=== PATIENT | male | born 1970 | race Caucasian/White ===

== ENCOUNTER 2021-10-20 10:22 | Outpatient (REF) | payer OTHER, SELFPAY ==
--- NOTE | ~2021-10-20 | XR_ITS ---
EXAMINATION: XR ABDOMEN KUB CLINICAL INDICATION: Calculus COMPARISON: 10/12/2016 plain films and 10/04/2018 CT scan TECHNIQUE: AP view of the abdomen. FINDINGS: The bowel gas pattern is normal with no evidence of ileus or obstruction. No unusual soft tissue calcifications are noted. The bones are unremarkable. XR/XR KUB IMPRESSION: I do not appreciate any definitive suspicious calcifications overlying the renal shadows or along expected course the ureters currently. Dense stool does overlie the renal shadows which could obscure tiny calculi. Desiccation in the left pelvis appears to correspond with seminal vesicle calcifications on the recent CT scan. No acute bony abnormality.
== END 2021-10-20 10:23 | disposition home or self-care (01) ==
LOC: HO.XRAY 10:22
PROVIDERS: PCP Internal Medicine; Visit Provider Urology
DX: N20.0 Calculus of kidney (principal); R39.11 Hesitancy of micturition
CPT/HCPCS: 74018

== ENCOUNTER 2021-11-17 10:57 | Outpatient (REF) | payer OTHER, SELFPAY ==
--- NOTE | ~2021-11-17 | US_ITS ---
EXAMINATION: US RETROPERITONEAL LIMITED (RENAL ONLY) CLINICAL INFORMATION: Calculus of kidney. COMPARISON: KUB dated 10/20/2021 and 10/12/2016. CT abdomen and pelvis without contrast dated 10/04/2018. Renals only ultrasound dated 05/01/2018 and 05/03/2017. TECHNIQUE: Real-time imaging of the kidneys. FINDINGS: RIGHT KIDNEY: 10.3 x 5.1 x 4.2 cm (SAG x AP x TRV). The kidney is normal in size, contour, and echogenicity. Renal cortical thickness is normal. No calculi or focal parenchymal lesions. No hydronephrosis. There is mild pelvic fullness and caliectasis. LEFT KIDNEY: 12.1 x 6.1 x 4.9 cm (SAG x AP x TRV). The kidney is normal in size, contour, and echogenicity. Renal cortical thickness is normal. No calculi or focal parenchymal lesions. No hydronephrosis. There is mild pelvic fullness and caliectasis. US/US renal BI IMPRESSION: Mild bilateral pelvic fullness and caliectasis. No echogenic stones, cyst or solid mass seen.
== END 2021-11-17 10:58 | disposition home or self-care (01) ==
LOC: HO.US 10:57
PROVIDERS: PCP Internal Medicine; Visit Provider Urology
DX: N20.0 Calculus of kidney (principal)
CPT/HCPCS: 76775

== ENCOUNTER → 2021-11-23 09:57 | Outpatient (BNVA) | payer OTHER, SELFPAY | PROVIDERS: PCP Internal Medicine; Visit Provider Urology ==

== ENCOUNTER → 2022-12-07 13:21 | Outpatient (BNVA) | payer OTHER, SELFPAY | PROVIDERS: PCP Internal Medicine; Visit Provider Urology | DX: N20.0 Calculus of kidney (principal); N32.0 Bladder-neck obstruction | CPT/HCPCS: 51798 ==

== ENCOUNTER 2024-02-13 09:58 | Outpatient (AMB) | payer OTHER, SELFPAY ==
--- NOTE | 2024-02-13 10:13 | MHC.OFFVIS ---
Intake Intake Visit Reasons: 1Y Follow Up(Pt declined US)Confirmed Intake Note: Patient is Present for Follow Up Urology Medication: Alfuzosin Antibiotic Allergies:None Blood Thinners:None Allergies No Known Allergies [No Known Allergies*] Allergy (Verified 12/07/22 13:36) HPI HPI Comments History of Present Illness Details Hiram is a pleasant male. He is a patient of Dr Carmen. He is seen for following urologic conditions - nephrolithiasis - lower urinary tract symptoms Twelve month follow-up lower urinary tract symptoms Continued symptom improvement on medication Twelve month follow-up Nephrolithiasis Prior history of nephrolithiasis Imaging - 10/26 Renal US - No stones, 10/27 renal ultrasound no stones Encourage fluids Surveillance imaging Lower urinary tract symptoms Primarily weak stream and urgency Improved significantly on alfuzosin Prior medication tamsulosin did not tolerate secondary to upset stomach PFSH Medical History History of kidney stones Renal stones Surgical History History of surgery Review of Systems Const Denies chills and Denies fever(s) Card Reports no additional complaints and Denies syncope Resp Denies cough GI Denies abdominal pain and Denies heartburn Reports as per HPI and Denies change in libido Neuro Denies syncope Psych Denies change in libido Endo Denies change in libido Physical Exam Const General: cooperative, healthy appearing, comfortable and no acute distress Orientation/consciousness: patient oriented x3 HEENT Face and sinus: Yes normal facial exam Mouth: moist mucous membranes Neck Neck: Yes normal visual inspection, Yes full ROM and Yes trachea midline Chest Chest palpation & inspection: normal inspection of the chest Resp Effort & Inspection: normal respiratory effort, able to speak in complete sentences and no respiratory distress GI Inspection: Yes normal to inspection Back/Spine/Pelvis Cervical Spine: normal cervical lordosis Thoracic/Lumbar Spine: thoracic and lumbar spine normal to inspection Skin General skin exam: no rashes or lesions noted Neuro General: patient oriented x3, gait normal, tone normal and moves all extremities Extrem General: Yes normal to inspection and Yes capillary refill normal Assessment & Plan Assessment & Plan (1) Bladder outlet obstruction: Code(s): N32.0 - Bladder-neck obstruction (2) Nephrolithiasis: Code(s): N20.0 - Calculus of kidney Plan Twelve month follow-up Patient Instructions: Imaging studies, laboratory and physical exam results were discussed and reviewed in detail. No major barriers to patient understanding were identified. An opportunity to ask questions regarding the treatment plan was provided. All questions were answered. The patient expressed understanding and agreement with the above treatment plan. The patient is aware they should contact our office by phone for worsening of their current condition or the appearance of new urologic symptoms. Compliance is encouraged with any medications and followup testing that is ordered. It is a privilege to participate in the urologic care of your patient. If you have any questions or concerns regarding treatment for the above conditions, or other urologic issues, please do not hesitate to contact me. The office telephone contact is [phone]. This note is constructed using voice recognition software. While every effort has been made to ensure accuracy management assistant errors may have been included. Yours sincerely, Dr Emigdio Glaser MD, [facility] - Urology Providers of Expert, Compassionate Care for the Genitourinary System Coding Level of Care Code Est Pt Level 4 (36288) Diagnoses Bladder outlet obstruction N32.0 Nephrolithiasis N20.0
== END 2024-02-13 10:44 | disposition home or self-care (01) ==
PROVIDERS: Visit Provider Urology
DX: N32.0 Bladder-neck obstruction (principal); N20.0 Calculus of kidney
CPT/HCPCS: 99213

== ENCOUNTER → 2024-02-13 09:58 | Outpatient (BNVA) | payer OTHER, SELFPAY | PROVIDERS: Visit Provider Urology ==

== ENCOUNTER 2025-02-11 10:57 | Outpatient (AMB) | payer OTHER, SELFPAY ==
--- NOTE | 2025-02-11 11:13 | MHC.OFFVIS ---
Intake Visit Reasons: 1 YR PVR- r/s Intake Note: Patient is Present for 1Y Follow Up/PVR Urology Medication: Alfuzosin Antibiotic Allergies:None Blood Thinners:None TODAY'S PVR:38ML'S Life Skills Coordinator Volunteer Required: No Allergies No Known Allergies [No Known Allergies*] Allergy (Verified 02/11/25 11:29) HPI Comments Details: Hiram is a pleasant male. He is a patient of Dr Carmen. He is seen for following urologic conditions - nephrolithiasis - lower urinary tract symptoms Yearly follow-up PVR 40 cc Would consider tadalafil for bladder outlet obstruction Check PSA next year Nephrolithiasis Prior history of nephrolithiasis Imaging - 10/26 Renal US - No stones, 10/27 renal ultrasound no stones Encourage fluids Surveillance imaging Lower urinary tract symptoms Primarily weak stream and urgency Improved significantly on alfuzosin Prior medication tamsulosin did not tolerate secondary to upset stomach PFSH Medical History History of kidney stones Renal stones Surgical History History of surgery Office Procedures Post Void Residual Post Residual Void Post Void Residual (PVR): 38 90701-Ulhg Void Residual by ultrasound Results AMB Urinalysis, Automated UA Leukoctes 0 Meagan/uL Last Edit by YELITZA Lozano on 02/11/25 11:31 UA Nitrite Negative Last Edit by YELITZA Lozano on 02/11/25 11:31 UA Urobilinogen 0.2 mg/dL Last Edit by YELITZA Lozano on 02/11/25 11:31 UA Protein 0 mg/dL Last Edit by YELITZA Lozano on 02/11/25 11:31 UA pH 7.0 Last Edit by YELITZA Lozano on 02/11/25 11:31 UA Blood 0 Brayden/uL Last Edit by YELITZA Lozano on 02/11/25 11:31 UA Specific [place] 1.010 Last Edit by YELITZA Lozano on 02/11/25 11:31 UA Ketone Negative Last Edit by YELITZA Lozano on 02/11/25 11:31 UA Bilirubin 0 mg/dL Last Edit by YELITZA Lozano on 02/11/25 11:31 UA Glucose 0 mg/dL Last Edit by YELITZA Lozano on 02/11/25 11:31 Results Reviewed Results Reviewed: Laboratory Last Values Urine pH (Auto) 7.0 02/11/25 11:30 Specific [place] (Auto) 1.010 02/11/25 11:30 Urine Protein (Auto) 0 mg/dL 02/11/25 11:30 Glucose (UA)(Auto) 0 mg/dL 02/11/25 11:30 Urine Ketones (Auto) Negative 02/11/25 11:30 Urine Blood (Auto) 0 Brayden/uL 02/11/25 11:30 Urine Nitrite (Auto) Negative 02/11/25 11:30 Urine Bilirubin (Auto) 0 mg/dL 02/11/25 11:30 Urine Urobilinogen (Auto) 0.2 mg/dL 02/11/25 11:30 Leukocyte Esterase (Auto) 0 Meagan/uL 02/11/25 11:30 Assessment & Plan Assessment & Plan Orders: Orders AMB Urinalysis Automated Today Z13.9 - Encounter for screening, unspecified Medications: Refilled alfuzosin ER administer after the same meal each day 10 mg PO DAILY 90 days 90 tabs 3RF N20.0 - Calculus of kidney Coding CPT Codes Post Residual Void - PVR CPT Code: 46013-Jgeq Void Residual by ultrasound ([id number])
--- OUTSIDE RECORDS SUMMARY | 2025-02-11 13:18 | XMS_ITS | Patient Health Record ---
Author Organization [facility] Address [address] [facility] [address] [place] [address] Care Team Providers Care Slitter Scorer Name Role Phone Debra isabel Primary Care Provider Sigifredo Quiroga MD MSc, Renetta Unavailable [phone] Online, Search Unavailable Unavailable Reason For Referral No Information Medications Medication SIG (Take, Route, Fr equency, Duration) Notes Start Date End Date Status Cephalexin 500 MG 2 tablets Orally 1 h our before procedure for 1 days 08/05/2018 Active Social History Alcohol screen Question Answer Notes Did you have a drink contain ing alcohol in the past year? Yes How often did you have a dri nk containing alcohol in the past year? Two to three times per week (3 points) Drug Question Answer Notes Have you used drugs other th an those for medical reasons in the past 12 months? No Plan Of Treatment No Information Insurance Providers Payer Name Payer Address Payer Phone Subscriber Number Group Number Insured Name Patient Relationship to Insured Coverage Start Date Coverage End Date [facility] [address] [address] [place] [address] [id number] Hiram Fontanez Self - patient is the insured
== END 2025-02-11 12:29 | disposition home or self-care (01) ==
PROVIDERS: PCP Internal Medicine; Visit Provider Urology
DX: Z13.9 Encounter for screening, unspecified (principal)

== ENCOUNTER → 2025-02-11 10:57 | Outpatient (BNVA) | payer OTHER, SELFPAY | PROVIDERS: PCP Internal Medicine; Visit Provider Urology | DX: N20.0 Calculus of kidney (principal); N32.0 Bladder-neck obstruction; R39.11 Hesitancy of micturition | CPT/HCPCS: 51798; 81003 ==

== ENCOUNTER 2025-07-23 15:19 | Outpatient (AMB) | payer OTHER, SELFPAY ==
--- OUTSIDE RECORDS SUMMARY | 2025-07-23 18:48 | XMS_ITS | Patient Health Record ---
Author Organization [facility] Shayan rosa [place] Address [address] [place] [address] Care Team Providers Care Combination Machine Tool Setter Name Role Phone Debra Carmen MD Primary Care Provider Sagar Huff Unavailable [phone] Reason For Referral No Information Medications Medication SIG (Take, Route, Fr equency, Duration) Notes Start Date End Date Status advil PRN Not-Taking Multivitamin Active Social History Tobacco use other than smoking: Question Answer Notes Are you an other tobacco user? No Plan Of Treatment Pending Test Test Name Order Date X ray : Foot, left 3V 09/12/2016 29696, J0702- Neuroma/Injection 09/12/20 16 91916, J0702- Neuroma/Injection 10/10/20 16 62025, J0702- Neuroma/Injection 01/31/20 17 Insurance Providers Payer Name Payer Address Payer Phone Subscriber Number Group Number Insured Name Patient Relationship to Insured Coverage Start Date Coverage End Date [facility] [address] [place] [address] [phone] [id number] Astrid Fontanez Spouse - patient is the spouse of the insured Medical (General) History Medical History History ICD Code Chicken pox
--- OUTSIDE RECORDS SUMMARY | 2025-07-23 18:48 | XMS_ITS | Clinical Summary ---
Author Organization [facility] Address [address] [address] Phone Care Team Providers Care Nuclear Auxiliary Operator Name Role Phone Unavailable Primary Care Provider Unavailabl e Social History Tobacco Use Types Packs/Day Years Used Date Smoking Tobacco: Never Assessed Education Answer Date Recorded Are you interested in more education? Not on adriana e 03/03/2023 Are you concerned about learning? Not on file 03/03/2023 No 03/03/2023 No 03/03/2023 Digital Access Answer Date Recorded No 04/04/2023 No 04/04/2023 No 04/04/2023 Reliable internet access at home? Not on file 04/04/2023 Device with a working camera? Not on file Sex and Gender Information Value Date Recorded Sex Assigned at Not on file Legal Sex Male 1:44 PM EDT Gender Identity Not on file Sexual Orientation Not on file Plan of Treatment Not on file Medical Devices Not on file Insurance [employer] [place] [address] [place], [place] [address] [address] [place] [address] [address] [facility] E[facility] AETNA HMO POS EPO AETNA HMO POS EPO Additional Source Comments The information contained in this document represents components of the legal health record. It is not the complete legal health record.[facility]
--- OUTSIDE RECORDS SUMMARY | 2025-07-23 18:48 | XMS_ITS | Patient Health Record ---
Author Organization [facility] Address [address] [facility] [address] [place] [address] Care Team Providers Care Child Care Counselor Name Role Phone maameDebra Primary Care Provider Sigifredo Quiroga MD MSc, Renetta Unavailable [phone] Online, Search Unavailable Unavailable Reason For Referral No Information Medications Medication SIG (Take, Route, Fr equency, Duration) Notes Start Date End Date Status Cephalexin 500 MG 2 tablets Orally 1 h our before procedure; Duration: 1 days 08/05/2018 Acti ve Social History Alcohol screen Question Answer Notes [...] Insured Coverage Start Date Coverage End Date [facility] [address] [address] [place] [address] [phone] [id number] Hiram Fontanez Self - patient is the insured
--- OUTSIDE RECORDS SUMMARY | 2025-07-23 18:48 | XMS_ITS | Encounter Summary ---
Author Organization [facility] Address [address] [facility] [address] [place] [address] Phone Care Team Providers Care Safety Admin Assistant Name Role Phone Unavailable Primary Care Provider Unavailabl e Encounter Details Date Type Department Care Team (Late st Contact Info) Description 05/28/2019 Procedure Pass [facility] Endoscopy Admitting Dept Virtual Department [address] [place] [address] Social History Tobacco Use Types Packs/Day Years Used Date Smoking Tobacco: Never Assessed Sex and Gender Information Value Date Recorded Sex Assigned at Not on file Legal Sex Male 1:44 PM EDT Gender Identity Not on file Sexual Orientation Not on file documented as of this encounter Plan of Treatment Not on file documented as of this encounter Visit Diagnoses Not on filedocumented in this encounter Additional Source Comments The information contained in this document represents components of the legal health record. It is not the complete legal health record.[facility]
== END 2025-07-23 15:35 | disposition home or self-care (01) ==
LOC: HO.HMGAL 15:19
PROVIDERS: PCP Internal Medicine; Visit Provider Registered Nurse Emergency
DX: J30.89 Other allergic rhinitis (principal)
CPT/HCPCS: 95117; 95165

== ENCOUNTER 2025-08-20 11:32 | Outpatient (AMB) | payer OTHER, SELFPAY | END 2025-08-20 11:37 | disposition home or self-care (01) | LOC: HO.HMGAL 11:32 | PROVIDERS: PCP Internal Medicine; Visit Provider Registered Nurse Emergency | DX: J30.89 Other allergic rhinitis (principal) | CPT/HCPCS: 95117; 95165 ==

== ENCOUNTER 2025-09-03 10:58 | Outpatient (AMB) | payer OTHER, SELFPAY ==
--- OUTSIDE RECORDS SUMMARY | 2025-09-03 13:53 | XMS_ITS | Encounter Summary ---
Author Organization [facility] Address [address] [facility] [address] [place] [address] Phone Care Team Providers Care Electro Winning Operator Name Role Phone Unavailable Primary Care Provider Unavailabl e Encounter Details Date Type Department Care Team (Late st Contact Info) Description 05/28/2019 Procedure Pass [facility] Endoscopy Admitting Dept Virtual Department [address] [place] [address] Social History Tobacco Use Types Packs/Day Years [...] It is not the complete legal health record.[facility]
--- OUTSIDE RECORDS SUMMARY | 2025-09-03 13:53 | XMS_ITS | Clinical Summary ---
Author Organization [facility] Address [address] [address] Phone Care Team Providers Care Nurse Assessor Name Role Phone Unavailable Primary Care Provider [...] on file Insurance [employer] [place] [address] [place] [address] [address] [place] [address] [address] [place] [address] HMO [facility] E[facility]PO AETNA HMO POS EPO AET[employer] HMO POS EPO Additional Source Comments The information contained in this document represents components of the legal health record. It is not the complete legal health record.[facility]
--- OUTSIDE RECORDS SUMMARY | 2025-09-03 13:53 | XMS_ITS | Patient Health Record ---
Author Organization [facility] Address [address] [facility] [address] [place] [address] Care Team Providers Care Shipyard Painting Supervisor Name Role Phone maameDebra Primary Care Provider Sigifredo Quiroga MD MSc, Renetta Unavailable [phone] Online, Search Unavailable Unavailable Reason For Referral [...] Insured Coverage Start Date Coverage End Date [facility] [address] [address] [place] [address] [phone] [id number] Hiram Fontanez Self - patient is the insured
--- OUTSIDE RECORDS SUMMARY | 2025-09-03 13:53 | XMS_ITS | Patient Health Record ---
Author Organization [facility] Shayan rosa [place] Address [address] [place] [address] Care Team Providers Care Toe Sewer Name Role Phone Debra Carmen MD Primary Care Provider Sagar Guo Unavailable [phone] Reason For Referral No Information Medications Medication SIG (Take, Route, Fr equency, Duration) Notes Start Date End Date Status advil PRN Not-Taking Multivitamin Active Social History Tobacco use other than smoking: Question Answer Notes Are you an other tobacco user? No Plan Of Treatment Pending Test Test Name Order Date X ray : Foot, left 3V 09/12/2016 51843, J0702- Neuroma/Injection 09/12/20 16 17515, J0702- Neuroma/Injection 10/10/20 16 22633, J0702- Neuroma/Injection 01/31/20 17 Insurance Providers Payer Name Payer Address Payer Phone Subscriber Number Group Number Insured Name Patient Relationship to Insured Coverage Start Date Coverage End Date [facility] [address] [place] [address] [phone] [id number] Astrid Fontanez Spouse - patient is the spouse of the insured Medical (General) History Medical History History ICD Code Chicken pox
== END 2025-09-03 10:58 | disposition home or self-care (01) ==
LOC: HO.HMGAL 10:58
PROVIDERS: PCP Internal Medicine; Visit Provider Registered Nurse Emergency
DX: J30.89 Other allergic rhinitis (principal)
CPT/HCPCS: 95117; 95165

== ENCOUNTER 2025-09-15 13:50 | Outpatient (AMB) | payer OTHER, SELFPAY ==
--- OUTSIDE RECORDS SUMMARY | 2025-09-15 16:04 | XMS_ITS | Encounter Summary ---
Author Organization [facility] Address [address] [facility] [address] [place] [address] Phone Care Team Providers Care Bark Fitter Name Role Phone Unavailable Primary Care Provider Unavailabl e Encounter Details Date Type Department Care Team (Late st Contact Info) Description 05/28/2019 Procedure Pass [facility] Endoscopy Admitting Dept Virtual Department [address] [place] [address] Social History Tobacco Use Types Packs/Day Years [...] It is not the complete legal health record.[facility]
--- OUTSIDE RECORDS SUMMARY | 2025-09-15 16:04 | XMS_ITS | Clinical Summary ---
Author Organization [facility] Address [address] [address] Phone Care Team Providers Care Workforce Advisor Name Role Phone Unavailable Primary Care Provider [...] on file Insurance AET[employer] O POS [place] [address] [place] [address]O [place] [address] [place], [place] [address] [address] HMO POS E[facility] POS EPO AETNA HMO POS EPO AETNA HMO POS EPO Additional Source Comments The information contained in this document represents components of the legal health record. It is not the complete legal health record.[facility]
== END 2025-09-15 13:51 | disposition home or self-care (01) ==
LOC: HO.HMGAL 13:50
PROVIDERS: PCP Internal Medicine; Visit Provider Registered Nurse Emergency
DX: J30.89 Other allergic rhinitis (principal)
CPT/HCPCS: 95117; 95165

== ENCOUNTER 2025-09-29 16:07 | Outpatient (AMB) | payer OTHER, SELFPAY ==
--- OUTSIDE RECORDS SUMMARY | 2025-09-29 20:21 | XMS_ITS | Clinical Summary ---
Author Organization [facility] Address [address] [address] Phone Care Team Providers Care Slip Box Changer Name Role Phone Unavailable Primary Care Provider [...] on file Insurance [employer] [place] [address] [place] [address] [address] [place] [address] [address] HMO [facility] EPO [facility] POS EPO AET[employer] HMO POS EPO AETNA HMO POS EPO Additional Source Comments The information contained in this document represents components of the legal health record. It is not the complete legal health record.[facility]
--- OUTSIDE RECORDS SUMMARY | 2025-09-29 20:21 | XMS_ITS | Encounter Summary ---
Author Organization [facility] Address [address] [facility] [address] [place] [address] Phone Care Team Providers Care Taxicab Starter Name Role Phone Unavailable Primary Care Provider Unavailabl e Encounter Details Date Type Department Care Team (Late st Contact Info) Description 05/28/2019 Procedure Pass [facility]oscopy Admitting Dept Virtual Department [address] [place] [address] Social History Tobacco Use Types Packs/Day Years [...] It is not the complete legal health record.[facility]
== END 2025-09-29 16:07 | disposition home or self-care (01) ==
LOC: HO.HMGAL 16:07
PROVIDERS: PCP Internal Medicine; Visit Provider Registered Nurse Emergency
DX: J30.89 Other allergic rhinitis (principal)
CPT/HCPCS: 95117; 95165

== ENCOUNTER 2025-10-13 09:52 | Outpatient (AMB) | payer OTHER, SELFPAY | END 2025-10-13 09:53 | disposition home or self-care (01) | LOC: HO.HMGAL 09:52 | PROVIDERS: PCP Internal Medicine; Visit Provider Registered Nurse Emergency | DX: J30.89 Other allergic rhinitis (principal) | CPT/HCPCS: 95117; 95165 ==